=== PATIENT | male | born 1970 | race Caucasian/White ===

== ENCOUNTER → 2017-10-26 | Outpatient (CLI) | payer OTHER ==
[~2017-10-26] MED LIST: CLR10 PO; GABA-113 PO; GARL1200 PO
--- NOTE | 2017-10-26 16:39 | DIAGNOSTIC IMAGING REPORT ---
L ANKLE MIN 3 VIEWS ROUTINE CLINICAL HISTORY: CONTUSION OF ANKLE,SPRAIN OF LIGAMENT OF ANKLE COMPARISON: None. DISCUSSION: Tiny avulsion tip distal fibula of indeterminate age. Margins are partially sclerotic which may indicate an old finding. Small heel spur. Mild ossification Achilles tendon insertion. IMPRESSION: Tiny avulsion tip distal fibula of indeterminate age. Otherwise negative study. The above report was generated using voice recognition software. It may contain grammatical, syntax or spelling errors. Electronically signed by: Gilbert Cervantes M.D. 10/26/2017 4:38 PM Dictated Date/Time: 10/26/2017 4:36 PM
--- NOTE | 2017-10-26 16:39 | DIAGNOSTIC IMAGING REPORT ---
L TIBIA/FIBULA 2 VIEWS ROUTINE HISTORY: 47 years-old Male CONTUSION OF ANKLE,SPRAIN OF LIGAMENT OF ANKLE acute left ankle sprain/contusion COMPARISON: Left ankle radiographs of same day TECHNIQUE: 2 views of the left tibia and fibula FINDINGS: Prominent spurring about the tibial tuberosity. Bone mineralization appears to be within normal limits. The distal portion of the tibia and fibula are not imaged. There is no acute fracture or dislocation identified. Soft tissues are unremarkable without opaque foreign body. IMPRESSION: No acute fracture. The above report was generated using voice recognition software. It may contain grammatical, syntax or spelling errors. Electronically signed by: Dallas Sanchez M.D. 10/26/2017 4:38 PM Dictated Date/Time: 10/26/2017 4:37 PM
== END | disposition home or self-care (01) ==
LOC: C.RAD 16:11
PROVIDERS: ATTEND Family Medicine
DX: S90.00XA Contusion of unspecified ankle, initial encounter (principal); S93.409A Sprain of unspecified ligament of unspecified ankle, initial encounter; X58.XXXA Exposure to other specified factors, initial encounter

== ENCOUNTER 2021-04-10 05:22 | Observation (INO) ==
[2021-04-10 06:42] LABS: Basophils # (auto) 0.03 K/uL (0-0.2); Basophils % (auto) 0.4 %; Eosinophils # (auto) 0.16 K/uL (0-0.5); Eosinophils % (auto) 2.1 %; Hematocrit (blood only) 37.1 % (42-52); Hemoglobin 12.6 g/dL (14.0-18.0); Immature Granulocytes # (auto) 0.01 K/uL (0.00-0.02); Immature Granulocytes % (auto) 0.1 %; Lymphocytes # (auto) 2.07 K/uL (1.2-3.4); Lymphocytes % (auto) 27.8 %; Mean Corpuscular Hemoglobin 31.3 pg (25-34); Mean Corpuscular Volume 92.1 fL (80-100); Mean Platelet Volume 9.4 fL (7.4-10.4); Monocytes # (auto) 0.65 K/uL (0.11-0.59); Monocytes % (auto) 8.7 %; Neutrophils # (auto) 4.53 K/uL (1.4-6.5); Neutrophils % (auto) 60.9 %; Platelet Count 289 K/uL (130-400); RDW Coefficient of Variation 12.4 % (11.5-14.5); RDW Standard Deviation 42.1 fL (36.4-46.3); Red Blood Count 4.03 M/uL (4.7-6.1); White Blood Count 7.45 K/uL (4.8-10.8)
--- NOTE | 2021-04-10 06:43 | Emergency Department Note ---
Impression & Plan Acute GI bleeding, Dog bite of hand, Melanotic stools Admit to the [facility] ED Provider Note NAME: VALERIANO TOURE AGE: 51 SEX: M ARRIVES VIA: Walk-In INFORMANT: Patient and his ED PROVIDER(S): Lydia Paniagua DO CHIEF COMPLAINT: Bloody stools PLAN: Disposition: Admit Condition: Stable MEDICAL DECISION MAKING: This is a 51-year-old male patient who presents to the emergency department with bloody stools. The patient was bitten by his own dog on Wednesday night. Since that time he has been taking ibuprofen, naproxen and Tylenol. Patient awoke tonight with diarrheal bowel movements which became bloody. As for the dog bite to the right hand, the patient has been soaking it in peroxide and watching for signs of infection. Overall there is some mild erythema and edema but it has been improving. His range of motion in the hand has been improving. The dog is up-to-date on its shots. The patient will require prophylaxis with Protonix. Patient will be kept n.p.o. and will be placed on a normal saline drip. [facility] T[facility] Nursing notes reviewed and agree with them. Additional history obtained from the patient's is at the bedside Vital Signs: reviewed and unremarkable Differential diagnosis: Upper GI bleeding, lower GI bleeding, hemorrhoidal bleeding, anemia, infected animal bite ER treatment provided: IV normal saline Diagnostics interpreted by me: ECG: Normal sinus rhythm at a rate of [address] segment elevation or signs of ischemia. There is no ectopy. QTC is 387 ms. Cardiac Monitoring: Normal sinus rhythm at a rate of 67 Laboratory studies: See below HPI: 51/M arrives for evaluation of GI bleeding. The patient has been taking Tylenol, ibuprofen and naproxen for dog bite. Around 1:30 AM, the patient awoke from sleep with sweating. He then had a diarrheal bowel movement around 2 AM and noticed significant amount of dark blood in the toilet. He then had 3 or 4 more bowel movements that were all melanotic. The patient denies ever having GI leading in the past. He was scheduled to have a colonoscopy on April 21. ROS: See above HPI for pertinent positives & negatives. A total of 10 systems reviewed and were otherwise negative. PAST MEDICAL HISTORY:See Below PAST SURGICAL HISTORY:See Below FAMILY HISTORY:See Below SOCIAL HISTORY:Retired from [employer] HOME MEDICATIONS:None ALLERGIES:See list VITALS:See Below PHYSICAL EXAMINATION: HEENT: Head - normocephalic and atraumatic. Pupils are equal, round, and reactive to light. Extraocular eye muscles are intact, and sclera are anicteric. Nose - moist nasal mucosa without discharge. Mouth - moist buccal mucosa. Oropharynx is nonerythematous and there is no tonsillar exudate or edema noted. Neck: Supple; no JVD or cervical lymphadenopathy Heart: Regular rate and rhythm. There is a normal S1 and S2 with no murmurs, clicks, or gallops appreciated. Lungs: Clear to auscultation bilaterally with no wheezes, rales, or rhonchi. Abdomen: Soft, completely nontender, nondistended, with good bowel sounds. There are no palpable pulsatile masses or hepatosplenomegaly. There is no guarding, rigidity, or rebound noted. Extremities: Right hand-there is a puncture wound in the webspace between the thumb and the first finger. There are also puncture wounds noted to the pad of the thumb and at the base of the nail of the thumb. There is significant edema and erythema to the thumb. There is limited range of motion of the thumb secondary to pain. There is some warmth noted to the thumb and the thenar eminence. The skin is somewhat white about the thumb and thenar eminence from where the patient has been soaking his thumb in peroxide. Skin: warm and dry with good turgor and no rashes. ED COURSE: Times/Reassessments: 0550: The patient was evaluated in room C9. A complete history and physical was performed. The patient was typed and screened. Laboratory studies were drawn as above. An order was placed for continuous cardiac monitoring. The patient was in a sinus rhythm at a rate of 67. The patient had a melanotic bowel movement upon arrival into room C9. Upon repeat evaluation of the patient, he was hemodynamically stable. He was having mild crampy abdominal pain. He was kept n.p.o. and placed on a normal saline drip. I reviewed the results of the laboratory studies with the patient and his . I discussed the case with the [facility] hospitalist group. Lydia aPniagua DO Past Med/Surg History Medical History (Updated 04/10/21 @ 22:14 by Lydia Paniagua DO) History of pneumothorax Nephrolithiasis Surgical History (Updated 04/10/21 @ 22:03 by Yassine Mendoza DO) History of chest tube placement History of inguinal herniorrhaphy History of vasectomy Social History Smoking Status: Never smoker Hx Alcohol Use: Yes Alcohol type: beer Hx Substance Use: No Preferred Language: Mozambican Communication Ability: Effective Mixing Supervisor Required: No Beliefs That Will Affect Care: None Current Living Situation: Spouse Feels Safe at Home: Yes Safety Concerns: Feels Safe At This Time Assistive Devices: None Allergies Allergies Allergy/AdvReac Type Severity Reaction Status Date / Time bee venom protein (honey bee) Allergy Severe ANAPHYLAXIS Unverified 04/10/21 07:41 Home Meds Home Medications Medication Instructions Recorded Confirmed No Known Home Medications 04/10/21 04/10/21 Results & Data (ED) Vital Signs Vital Signs - 24 hr 04/10/21 05:27 04/10/21 06:25 04/10/21 07:26 Temperature 36.7 C Temperature Source Temporal Artery Scan Pulse Rate 74 67 Pulse Rate [Left] 63 Pulse Rhythm [Left] Regular Respiratory Rate 20 18 16 Respiratory Effort / Characteristics Non-Labored Respiratory Depth Normal Blood Pressure 111/72 Blood Pressure [Left Arm] 125/67 Blood Pressure Mean 85 Blood Pressure Mean [Left Arm] 86 Blood Pressure Position [Left Arm] Sitting Pulse Oximetry 99 98 97 Oxygen Delivery Method Room Air Room Air Room Air Sepsis Recent Fever Within 48 Hours No Sepsis New/Unexplained Change in Mental Status N/A Sepsis Action Taken by Nursing No Action Required Laboratory Data Result diagrams: 04/10/21 06:28 04/10/21 06:28 Lab Results 04/10/21 04/10/21 04/10/21 Range/Units 06:28 06:28 06:28 WBC 7.45 (4.8-10.8) K/uL RBC 4.03 L (4.7-6.1) M/uL Hgb 12.6 L (14.0-18.0) g/dL Hct 37.1 L (42-52) % MCV 92.1 (80-100) fL MCH 31.3 (25-34) pg MCHC 34.0 (32-36) g/dL RDW Std Deviation 42.1 (36.4-46.3) fL RDW Coeff of Darlene 12.4 (11.5-14.5) % Plt Count 289 (130-400) K/uL MPV 9.4 (7.4-10.4) fL Immature Gran % (Auto) 0.1 % Neut % (Auto) 60.9 % Lymph % (Auto) 27.8 % Newton % (Auto) 8.7 % Eos % (Auto) 2.1 % Baso % (Auto) 0.4 % Neut # (Auto) 4.53 (1.4-6.5) K/uL Lymph # (Auto) 2.07 (1.2-3.4) K/uL Newton # (Auto) 0.65 H (0.11-0.59) K/uL Eos # (Auto) 0.16 (0-0.5) K/uL Baso # (Auto) 0.03 (0-0.2) K/uL Immature Gran # (Auto) 0.01 (0.00-0.02) K/uL PT 9.6 (9.0-12.0) Seconds INR 0.9 (0.9-1.1) APTT 24.5 (21.0-31.0) Seconds PTT Ratio 0.9 Sodium 138 (136-145) mmol/L Potassium 4.7 (3.5-5.1) mmol/L Chloride 110 H (98-107) mmol/L Carbon Dioxide 26 (21-32) mmol/L Anion Gap 2.0 L (3-11) BUN 35 H (7-18) mg/dl Creatinine 1.05 (0.6-1.4) mg/dl Est Cr Clr Drug Dosing 88.1 ml/min Est GFR ( Amer) 93.5 ml/min Est GFR (Non-Af Amer) 80.7 ml/min BUN/Creatinine Ratio 32.9 H (10-20) Glucose 104 H (70-99) mg/dl Calcium 8.5 (8.5-10.1) mg/dl Total Bilirubin 0.5 (0.2-1) mg/dl AST 14 L (15-37) U/L ALT 24 (12-78) U/L Alkaline Phosphatase 42 L (45-117) U/L Total Protein 6.6 (6.4-8.2) gm/dl Albumin 3.3 L (3.4-5.0) gm/dl Globulin 3.3 (2.5-4.0) gm/dl Albumin/Globulin Ratio 1.0 (0.9-2) Blood Type Antibody Screen 04/10/21 Range/Units 06:38 WBC (4.8-10.8) K/uL RBC (4.7-6.1) M/uL Hgb (14.0-18.0) g/dL Hct (42-52) % MCV (80-100) fL MCH (25-34) pg MCHC (32-36) g/dL RDW Std Deviation (36.4-46.3) fL RDW Coeff of Darlene (11.5-14.5) % Plt Count (130-400) K/uL MPV (7.4-10.4) fL Immature Gran % (Auto) % Neut % (Auto) % Lymph % (Auto) % Newton % (Auto) % Eos % (Auto) % Baso % (Auto) % Neut # (Auto) (1.4-6.5) K/uL Lymph # (Auto) (1.2-3.4) K/uL Newton # (Auto) (0.11-0.59) K/uL Eos # (Auto) (0-0.5) K/uL Baso # (Auto) (0-0.2) K/uL Immature Gran # (Auto) (0.00-0.02) K/uL PT (9.0-12.0) Seconds INR (0.9-1.1) APTT (21.0-31.0) Seconds PTT Ratio Sodium (136-145) mmol/L Potassium (3.5-5.1) mmol/L Chloride (98-107) mmol/L Carbon Dioxide (21-32) mmol/L Anion Gap (3-11) BUN (7-18) mg/dl Creatinine (0.6-1.4) mg/dl Est Cr Clr Drug Dosing ml/min Est GFR ( Amer) ml/min Est GFR (Non-Af Amer) ml/min BUN/Creatinine Ratio (10-20) Glucose (70-99) mg/dl Calcium (8.5-10.1) mg/dl Total Bilirubin (0.2-1) mg/dl AST (15-37) U/L ALT (12-78) U/L Alkaline Phosphatase (45-117) U/L Total Protein (6.4-8.2) gm/dl Albumin (3.4-5.0) gm/dl Globulin (2.5-4.0) gm/dl Albumin/Globulin Ratio (0.9-2) Blood Type O Positive Antibody Screen NEGATIVE Administered Medications Acetaminophen (Acetaminophen 325 Mg Tab) 650 mg PO Q4H PRN PRN Reason: Pain or Fever Stop: 05/10/21 10:39 Last Admin: 04/10/21 15:54 Dose: 650 mg Documented by: [id number] Sodium Chloride (Nss 1000ml) 1,000 mls @ 80 mls/hr IV .[id number] BOB Stop: 05/10/21 10:39 Last Admin: 04/10/21 11:44 Dose: Not Given Documented by: [id number] Pantoprazole Sodium 40 mg/ (Syringe) 10 mls @ 5 mls/min IV BID BOB Stop: 05/10/21 10:39 Last Admin: 04/10/21 20:56 Dose: 5 mls/min Documented by: [id number] Admin: 04/10/21 11:45 Dose: 5 mls/min Documented by: [id number] Ampicillin Sodium/Sulbactam Sodium 3,000 mg/ Sodium Chloride 108 mls @ 200 mls/hr IV Q6H BOB; Protocol Stop: 04/17/21 10:59 Last Infusion: 04/10/21 18:53 Dose: 0 mls/hr Documented by: [id number] Admin: 04/10/21 18:14 Dose: 200 mls/hr Documented by: [id number] Infusion: 04/10/21 12:42 Dose: 0 mls/hr Documented by: [id number] Admin: 04/10/21 11:45 Dose: 200 mls/hr Documented by: [id number] Discontinued Medications Sodium Chloride (Nss) 500 mls @ 125 mls/hr IV .Q4H BOB Stop: 05/10/21 07:29 Last Infusion: 04/10/21 12:44 Dose: 0 mls/hr Documented by: [id number] Admin: 04/10/21 10:08 Dose: 125 mls/hr Documented by: [id number] Lidocaine HCl (Lidocaine 2% 2 Ml Vial/Amp(20mg/Ml)) Confirm Administered Dose 2 ml INFIL .[employer] ONE Stop: 04/10/21 14:08 Last Admin: 04/10/21 15:45 Dose: Not Given Documented by: [id number] Polyethylene Glycol (Polyethylene (Miralax) 17 Gm Pack) 238 gm PO TODAY@1500,2000 BOB Stop: 04/10/21 20:01 Last Admin: 04/10/21 19:50 Dose: 238 gm Documented by: [id number] Admin: 04/10/21 18:15 Dose: 238 gm Documented by: [id number] Propofol (Propofol Iv Emulsion 10 Mg/Ml 20 Ml Vial) Confirm Administered Dose 200 mg IV .[employer] ONE Stop: 04/10/21 14:08 Last Admin: 04/10/21 15:45 Dose: Not Given Documented by: [id number] Discharge Plan Visit Data Chief Complaint: Rectal Bleed Stated Complaint: BLOOD IN STOOL ED Provider: Lydia Paniagua Discharge Problem: Acute GI bleeding, Dog bite of hand, Melanotic stools Patient Disposition: Admitted As Inpatient Discharge Instructions Interventions: ED Discharge Assessment Last Done: 04/10/21 10:08 Discharge Problem: Dog bite of hand Qualifiers: Encounter type: initial encounter Laterality: right Qualified Code(s): S61.451A - Open bite of right hand, initial encounter
[2021-04-10 07:03] LABS: Albumin Level 3.3 gm/dl (3.4-5.0); BUN Creatinine Ratio 32.9 (10-20); Calcium 8.5 mg/dl (8.5-10.1); Creatinine Clr Calc Pharmacy 88.1 ml/min; Est GFR (African American) 93.5 ml/min; Est GFR (Non-African American) 80.7 ml/min; Potassium 4.7 mmol/L (3.5-5.1)
[2021-04-10 07:04] LABS: Bilirubin,Total 0.5 mg/dl (0.2-1); Globulin 3.3 gm/dl (2.5-4.0); Total Protein 6.6 gm/dl (6.4-8.2)
[2021-04-10 07:17] LABS: INR 0.9 (0.9-1.1); Partial Thromboplastin Ratio 0.9; Partial Thromboplastin Time 24.5 Seconds (21.0-31.0); Prothrombin Time 9.6 Seconds (9.0-12.0)
[2021-04-10] MEDS ORDERED: SODIUM CHLORIDE 0.9% 500 ML IV SCH (07:30)
--- NOTE | 2021-04-10 10:06 | History & Physical Report ---
Date of Service April 10, 2021 Assessment & Plan (1) GI bleed: Plan: melanotic stools since 1am this morning, initially was diarrhea, then 4 dark, black stools taking Naproxen and ibuprofen NPO, Protonix 40mg IV BID consult [facility] GI for scope this afternoon if possible vitals stable (2) Dog bite of hand: Plan: some redness and swelling of right thumb, thenar eminence will place on Unasyn bite occurred 2 days ago, no fever/chills he is up to date on tetanus shot History of Present Illness Chief Complaint: I had very dark stools Primary Care Provider: China Banda MD 51 yo male with no significant medical history presents with development of dark, melanotic stools in the past 10 hours. Never had this before, started around 1am, woke up with diaphoresis, had diarrhea about 4 times then had several very dark, black looking stools. No bright red blood. He had some nausea but no vomiting. Some vague upper abdominal discomfort. He came to the ED for evaluation, two more dark melanotic stools in the ED. He says that 3 days ago his dog bit his right hand. Bit down on thumb and thenar eminence. Has had a lot of pain and swelling. Has been taking Naproxen BID and Tylenol but also ibuprofen 400mg several times a day. Discussed that this is too much NSAID use, could be cause of gastric ulcer. No heavy alcohol use. He was scheduled to have colonoscopy with Dr Dailey next week. Will consult Dr. Dailey. Allergies Allergy/AdvReac Type Severity Reaction Status Date / Time bee venom protein (honey bee) Allergy Severe ANAPHYLAXIS Unverified 04/10/21 07:41 Home Medications Medication Instructions Recorded Confirmed Type No Known Home Medications 04/10/21 04/10/21 History Past Med/Surg History Medical History (Updated 04/10/21 @ 22:03 by Yassine Mendoza DO) History of pneumothorax Nephrolithiasis Surgical History (Updated 04/10/21 @ 22:03 by Yassine Mendoza DO) History of chest tube placement History of inguinal herniorrhaphy History of vasectomy Social History Smoking Status: Never smoker Hx Alcohol Use: Yes Alcohol type: beer Hx Substance Use: No Preferred Language: Palestinian Communication Ability: Effective Counter Pocket Trimmer Required: No Beliefs That Will Affect Care: None Current Living Situation: Spouse Feels Safe at Home: Yes Safety Concerns: Feels Safe At This Time Assistive Devices: None Review of Systems Review of Systems: All systems reviewed & are unremarkable except as noted in Subjective Constitutional: no fever, no chills, no sweats, no fatigue and no weakness Respiratory: no cough and no dyspnea Cardiovascular: no chest pain and no edema Gastrointestinal: + abdominal pain, + early satiety, + nausea, + diarrhea/loose stools and + melena; no vomiting, no coffee ground emesis, no c onstipation and no blood in stools Genitourinary: no dysuria Physical Exam Physical Exam: General: well developed, well nourished, no acute distress, comfortable Neck: supple, trachea midline, normal thyroid Lungs: clear to auscultation bilaterally, normal respiratory effort, no access ory muscle use, no distress Heart: regular S1 and S2, no murmur, peripheral pulses normal, capillary refill normal, no edema Abdomen: soft, NT, ND, + BS, no hepatomegaly, normal to percussion Extremities: normal in appearance, no cyanosis, no petechiae, strength is 5/5 bilaterally Neuro: awake, cooperative, moves all extremities, no focal motor deficits, CN II-XII intact, sensation in extremities intact, normal speech Skin: warm, dry, no rash, normal turgor Psych: Awake, alert oriented x 3, euthymic affect Results & Data Results & Data ([facility]) Vital Signs (Past 12 Hours) Vital Signs Temp Pulse Pulse Resp BP BP Pulse Ox 04/10/21 08:59 68 16 110/79 96 04/10/21 07:26 63 16 125/67 97 04/10/21 06:25 67 18 98 04/10/21 05:27 36.7 C 74 20 111/72 99 Laboratory Results Laboratory Results - last 24 hr 04/10/21 04/10/21 04/10/21 06:28 06:28 06:28 WBC 7.45 RBC 4.03 L Hgb 12.6 L Hct 37.1 L MCV 92.1 MCH 31.3 MCHC 34.0 RDW Std Deviation 42.1 RDW Coeff of Darlene 12.4 Plt Count 289 MPV 9.4 Immature Gran % (Auto) 0.1 Neut % (Auto) 60.9 Lymph % (Auto) 27.8 [place] % (Auto) 8.7 Eos % (Auto) 2.1 Baso % (Auto) 0.4 Neut # (Auto) 4.53 Lymph # (Auto) 2.07 [place] # (Auto) 0.65 H Eos # (Auto) 0.16 Baso # (Auto) 0.03 Immature Gran # (Auto) 0.01 PT 9.6 INR 0.9 APTT 24.5 PTT Ratio 0.9 Sodium 138 Potassium 4.7 Chloride 110 H Carbon Dioxide 26 Anion Gap 2.0 L BUN 35 H Creatinine 1.05 Est Cr Clr Drug Dosing 88.1 Est GFR ( Amer) 93.5 Est GFR (Non-Af Amer) 80.7 BUN/Creatinine Ratio 32.9 H Glucose 104 H Calcium 8.5 Total Bilirubin 0.5 AST 14 L ALT 24 Alkaline Phosphatase 42 L Total Protein 6.6 Albumin 3.3 L Globulin 3.3 Albumin/Globulin Ratio 1.0 Stool H. pylori Ag COVID-19 Eval Order SARS-CoV-2 (PCR) Blood Type Antibody Screen 04/10/21 04/10/21 04/10/21 06:38 07:35 07:35 WBC RBC Hgb Hct MCV MCH MCHC RDW Std Deviation RDW Coeff of Darlene Plt Count MPV Immature Gran % (Auto) Neut % (Auto) Lymph % (Auto) [place] % (Auto) Eos % (Auto) Baso % (Auto) Neut # (Auto) Lymph # (Auto) [place] # (Auto) Eos # (Auto) Baso # (Auto) Immature Gran # (Auto) PT INR APTT PTT Ratio Sodium Potassium Chloride Carbon Dioxide Anion Gap BUN Creatinine Est Cr Clr Drug Dosing Est GFR ( Amer) Est GFR (Non-Af Amer) BUN/Creatinine Ratio Glucose Calcium Total Bilirubin AST ALT Alkaline Phosphatase Total Protein Albumin Globulin Albumin/Globulin Ratio Stool H. pylori Ag COVID-19 Eval Order Covid19 at [facility] SARS-CoV-2 (PCR) NEGATIVE Blood Type O Positive Antibody Screen NEGATIVE 04/10/21 17:40 WBC RBC Hgb Hct MCV MCH MCHC RDW Std Deviation RDW Coeff of Darlene Plt Count MPV Immature Gran % (Auto) Neut % (Auto) Lymph % (Auto) [place] % (Auto) Eos % (Auto) Baso % (Auto) Neut # (Auto) Lymph # (Auto) [place] # (Auto) Eos # (Auto) Baso # (Auto) Immature Gran # (Auto) PT INR APTT PTT Ratio Sodium Potassium Chloride Carbon Dioxide Anion Gap BUN Creatinine Est Cr Clr Drug Dosing Est GFR ( Amer) Est GFR (Non-Af Amer) BUN/Creatinine Ratio Glucose Calcium Total Bilirubin AST ALT Alkaline Phosphatase Total Protein Albumin Globulin Albumin/Globulin Ratio Stool H. pylori Ag Pending COVID-19 Eval Order SARS-CoV-2 (PCR) Blood Type Antibody Screen Medications Administered Current Inpatient Medications Acetaminophen (Acetaminophen 325 Mg Tab) 650 mg PO Q4H PRN PRN Reason: Pain or Fever Stop: 05/10/21 10:39 Last Admin: 04/10/21 15:54 Dose: 650 mg Documented by: Sodium Chloride (Nss 1000ml) 1,000 mls @ 80 mls/hr IV .[id number] BOB Stop: 05/10/21 10:39 Last Admin: 04/10/21 11:44 Dose: Not Given Documented by: Pantoprazole Sodium 40 mg/ (Syringe) 10 mls @ 5 mls/min IV BID BOB Stop: 05/10/21 10:39 Last Admin: 04/10/21 20:56 Dose: 5 mls/min Documented by: Ampicillin Sodium/Sulbactam Sodium 3,000 mg/ Sodium Chloride 108 mls @ 200 mls/hr IV Q6H [facility]; Protocol Stop: 04/17/21 10:59 Last Infusion: 04/10/21 18:53 Dose: Infused Documented by: Ondansetron HCl (Ondansetron Inj 2 Mg/Ml 2 Ml Vial) 4 mg IV Q6H PRN PRN Reason: Nausea Stop: 05/10/21 10:39 Code Status & VTE Plan VTE Prophylaxis Plan VTE Prophylaxis will be ordered: Yes PG Care Time/CCT Total # of Minutes Spent Total Time Spent with Patient: Total time spent is greater than 50% in coordination of care (as documented) at patient's floor/unit and/or counseling patient: Coding Level of Care Code INT OBSERVATION CARE 70M LVL 3 Diagnoses GI bleed K92.2 Dog bite of hand S61.459A; W54.0XXA
[2021-04-10] MEDS ORDERED: ONDANSETRON INJ 2 MG/ML 2 ML VIAL IV PRN (10:40)
[2021-04-10] MEDS: SODIUM CHLORIDE 0.9% 1000ML 1,000 ML IV SCH ×2 (11:44→23:31)
[2021-04-10] MEDS: PANTOprazole 40 MG in SYRINGE 0 ML IV SCH ×2 (11:45→20:56)
[2021-04-10] MEDS: AMPICILLIN/SULBACTAM SOD 3,000 MG in 0.9 % SODIUM CHLORIDE 100 ML IV SCH ×3 (11:45→23:31)
--- NOTE | 2021-04-10 13:53 | Anesthesiology Consultation ---
Date of Service April 10, 2021 Assessment & Plan (1) Encounter for pre-operative examination: Chart Review Chart Review: Acceptable Risk for Surgery and Patient NOT seen in Pre Admission Testing Consults Requested none History Surgery Operation Date: 04/10/21 16:45 Proposed Procedures p Esophagogastroduodenoscopy Dr Dailey - Armond Dailey Height/Weight Height: 5 ft 9 in Weight: 85.4 kg Allergies Allergy/AdvReac Type Severity Reaction Status Date / Time bee venom protein (honey bee) Allergy Severe ANAPHYLAXIS Unverified 04/10/21 07:41 Medications Home Medications Medication Instructions Recorded Confirmed Last Taken No Known Home Medications 04/10/21 04/10/21 Unknown Active Medications Generic Name Dose Route Start Last Admin Trade Name Freq PRN Reason Stop Dose Admin Sodium Chloride 1,000 mls @ 80 mls/hr 04/10/21 10:40 04/10/21 11:44 Nss 1000ml IV 05/10/21 10:39 Not Given .[id number] BOB Pantoprazole Sodium 40 mg/ 10 mls @ 5 mls/min 04/10/21 10:40 04/10/21 11:45 Syringe IV 05/10/21 10:39 5 mls/min BID BOB Administration Ampicillin Sodium/Sulbactam 108 mls @ 200 mls/hr 04/10/21 11:00 04/10/21 12:42 Sodium 3,000 mg/ Sodium IV 04/17/21 10:59 Infused Chloride Q6H BOB Infusion Protocol Social History Smoking Status: Never smoker Hx Alcohol Use: Yes Alcohol type: beer alcohol intake frequency: other Alcohol Intake Frequency Comment: case of beer over 2-3 months Hx Substance Use: No Physical Exam Vital Signs Last Vital Signs Temp 98.1 F 04/10/21 05:27 Pulse 68 04/10/21 08:59 Resp 16 04/10/21 08:59 BP 110/79 04/10/21 08:59 Pulse Ox 96 04/10/21 08:59 Testing Laboratory Results 04/10/21 06:28 04/10/21 06:28 PT 9.6 Seconds (9.0-12.0) 04/10/21 06:28 INR 0.9 (0.9-1.1) 04/10/21 06:28 APTT 24.5 Seconds (21.0-31.0) 04/10/21 06:28 Blood Type O Positive 04/10/21 06:38 Antibody Screen NEGATIVE 04/10/21 06:38
--- NOTE | 2021-04-10 14:01 | Gastrointestinal Consultation ---
Date of Consultation April 10, 2021 Assessment & Plan (1) GI bleed: Black stool in setting of NSAIDs suggestive of UGI bleeding. Will do EGD today with therapeutic intent. Procedure and risks explained to patient which include but not limited to medication reaction, bleeding, perforation, aspiration, and missed lesions. 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 Some epi pain started this am 0900 severe at times but comes in waves currently ok. He had diarrhea at 0200 and stool perhaps dark but did not really look at it. But at 0400 saw black stool. Several bms at home and since admit this am. Some red component around edges but stool almost all black. Hgb 12.6 L on admit with no old lab to compare. Reviewed EGD from 12/2019 for GERD and globus which showed small HH, mild ring dilated with 57 F dilator, and possible eosinophilic esophagitis mid esophagus but path negative for eosinophilic esophagitis and duodneal stenosis. No previous colonoscopoy although he is set up for outpt colo 04/21/21 at our endoscopy center. PMH hx of back pain chronic meds none FHX non contributory. Allergies Allergy/AdvReac Type Severity Reaction Status Date / Time bee venom protein (honey bee) Allergy Severe ANAPHYLAXIS Unverified 04/10/21 07:41 Home Medications Medication Instructions Recorded Confirmed Type No Known Home Medications 04/10/21 04/10/21 History Patient History Social History Smoking Status: Never smoker Hx Alcohol Use: Yes Alcohol type: beer Hx Substance Use: No Preferred Language: Bahraini Communication Ability: Effective Control Clerk Food And Beverage Required: No Beliefs That Will Affect Care: None Current Living Situation: Spouse Feels Safe at Home: Yes Safety Concerns: Feels Safe At This Time Assistive Devices: None Review of Systems Review of Systems: All systems reviewed & are unremarkable except as noted in HPI & below Physical Exam Constitutional: WD/WN, vitals as above ENMT: Ears: no external ear abnormality Nose: no external nose abnormality Neck: normal visual inspection and trachea midline Respiratory: normal respiratory effort, lungs clear to auscultation Cardiovascular: RRR, no murmur, no edema Gastrointestinal (Abdomen): normal bowel sounds, soft, nontender, no h epatosplenomegaly Neurologic: PERRL, EOMI, accommodation nl, no face palsy, no dysarthria Psychiatric: A+Ox3, euthymic affect Results & Data ([facility]) Vital Signs (Past 12 Hours) Vital Signs Temp Pulse Pulse Resp BP BP Pulse Ox 04/10/21 08:59 68 16 110/79 96 04/10/21 07:26 63 16 125/67 97 04/10/21 06:25 67 18 98 04/10/21 05:27 36.7 C 74 20 111/72 99
[2021-04-10] MEDS ORDERED: PROPOFOL IV EMULSION 10 MG/ML 20 ML VIAL IV ONE (14:07)
[2021-04-10] MEDS ORDERED: LIDOCAINE 2% 2 ML VIAL/AMP(20MG/ML) INFIL ONE (14:07)
--- NOTE | 2021-04-10 14:58 | Post Operative Brief Note ---
Immediate Post Op Note v1 Date of Surgery April 10, 2021 Pre & Post Diagnosis Operation Date: 04/10/21 16:45 Pre-Op Diagnosis: GI BLEED I identified the patient and participated in the time-out.: Yes Procedure Operation Date: 04/10/21 16:45 <No data on this case meets the specified criteria> Surgeon Armond Dailey Car Lubricator see formal report Estimated Blood Loss 0 Findings Consistent with Post-Op Diagnosis erosive esophagitis, erosive gastritis, erosive duodenitis, duodenal stricture, schatzkis ring, hiatal hernia. No lesions to explain acute GI bleeding. Recommend colonoscopy tomorrow.
--- NOTE | 2021-04-10 15:13 | GI REPORT ---
Patient Name: Al Kim Procedure Date: 04/10/2021 2:22 PM Date of : 1970 Admit Type: Inpatient Age: 51 Gender: Male Attending MD: Armond Dailey MD Procedure: Upper GI endoscopy Providers: Armond Dailey MD Referring MD: Yassine Mendoza Indications: Acute post hemorrhagic anemia, Melena Medicines: Monitored Anesthesia Care Complications: No immediate complications. Estimated blood loss: Minimal. Estimated Blood Loss: Estimated blood loss was minimal. Procedure: Pre-Anesthesia Assessment: - The risks and benefits of the procedure and the sedation options and risks were discussed with the patient. All questions were answered and informed consent was obtained. After obtaining informed consent, the endoscope was passed under direct vision. Throughout the procedure, the patient's blood pressure, pulse, and oxygen saturations were monitored continuously. The Endoscope was introduced through the mouth, and advanced to the second part of duodenum. The upper GI endoscopy was accomplished without difficulty. The patient tolerated the procedure well. Procedure and risks explained to patient which include but not limited to medication reaction, bleeding, perforation, aspiration , and missed lesions. Judicious gas insufflation was used and gas removal done on the way out. The lumen was always visualized when advancing the scope. Prep was good. Washes and suctioning used as needed to get good visualization of the mucosa. Retroflexion to look at the fundus and cardia of the stomach and GE junction was done. Findings: Esophagogastric landmarks were identified: the gastroesophageal junction was found at 35 cm from the incisors. A 3 cm hiatal hernia was present. LA Grade A (one or more mucosal breaks less than 5 mm, not extending between tops of 2 mucosal folds) esophagitis was found at the gastroesophageal junction. A moderate Schatzki ring was found at the gastroesophageal junction. Multiple dispersed small erosions were found in the gastric fundus, in the gastric body and in the gastric antrum. Only one very small one in the body had slight self limited oozing of blood. No other had bleeding nor stigmata of recent bleeding. Multiple diffuse erosions up to 5 mm in size without bleeding were found in the first portion of the duodenum and in the second portion of the duodenum. Rutledge appering stenosis noted at junction of bulb and 2nd duodenum requring switch to ultrathin pediatric scope to traverse area The exam was otherwise without abnormality. Impression: - Esophagogastric landmarks identified. - 3 cm hiatal hernia. - LA Grade A erosive esophagitis. - Moderate Schatzki ring. - Multiple dispersed small erosions were found in the gastric fundus, in the gastric body and in the gastric antrum. Only one very small one in the body had slight self limited oozing of blood. No other had bleeding nor stigmata of recent bleeding. - Duodenal erosions without bleeding. 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 - No specimens collected. Recommendation: - [facility]. - No large lesion with active bleed or stigmata noted to explain the amount of bleeding clinically. Check stool for H.pylori Ag but NSAIDS could explain Will set up for colonoscopy tomorrow to look for bleeding distal to extent of scope. Armond Dailey M.D. Armond Dailey MD 04/10/2021 3:12:59 PM This report has been signed electronically. Note Initiated On: 04/10/2021 2:22 PM Number of Addenda: 0 I attest to the content of the Intraoperative Record and orders documented therein, exceptions below {[id number]}
--- NOTE | 2021-04-10 15:49 | Anesthesiology Progress Note ---
Date of Service April 10, 2021 Anesthesia Post Procedure Vital Signs Vital Signs: Temp Pulse Pulse Resp BP BP Pulse Ox 04/10/21 15:25 63 14 100/73 100 04/10/21 15:10 73 15 104/64 100 04/10/21 14:55 86 16 118/77 98 04/10/21 14:19 97.9 F 65 18 133/78 98 04/10/21 08:59 68 16 110/79 96 04/10/21 07:26 63 16 125/67 97 04/10/21 06:25 67 18 98 04/10/21 05:27 98.1 F 74 20 111/72 99 Pain Intensity Bilateral Lower Abdomen: Pain Intensity: 4 Transfer of Care Handoff Completed per policy Notes Mental Status: alert / awake / arousable and participated in evaluation Patient Amnestic to Procedure: Yes Nausea / Vomiting: adequately controlled Pain: adequately controlled Airway Patency, RR, SpO2: stable & adequate BP & HR: stable & adequate Hydration State: stable & adequate Anesthetic Complications: no major complications apparent and Pt Satisfied with anesthetic care
[2021-04-10] MEDS: ACETAMINOPHEN 325 MG TAB PO PRN (15:54)
--- NOTE | 2021-04-10 17:01 | Electrocardiogram Report ---
Test Reason : Blood Pressure : / mmHG Vent. Rate : 062 BPM Atrial Rate : 062 BPM P-R Int : 136 ms QRS Dur : 076 ms QT Int : 382 ms P-R-T Axes : 029 029 032 degrees QTc Int : 387 ms Normal sinus rhythm Normal ECG No previous ECGs available Confirmed by James Larios ([id number]) on 04/10/2021 5:01:19 PM Referred By: Confirmed By:James Larios
[2021-04-10] MEDS: POLYETHYLENE (MIRALAX) 17 GM PACK PO SCH ×2 (18:15→19:50)
[2021-04-11] MEDS: AMPICILLIN/SULBACTAM SOD 3,000 MG in 0.9 % SODIUM CHLORIDE 100 ML IV SCH ×2 (05:45→11:18)
[2021-04-11] MEDS: PANTOprazole 40 MG in SYRINGE 0 ML IV SCH (08:17)
--- NOTE | 2021-04-11 08:35 | Gastroenterology Progress Note ---
Date of Service April 11, 2021 Assessment & Plan (1) Acute GI bleeding: Plan: Acute GI bleeding - EGD performed yesterday did not demonstrate cause consistent with amount of bleeding patient experienced. Plan for today is colonoscopy. Patient tolerated prep well. Procedure and risks explained to patient which include but not limited to medication reaction, bleeding, perforation, aspiration, and missed lesions. Verbalizes understanding and is agreeable to proceed. Remain NPO. Stool for h.pylori is pending. Transfuse prn. Please refer to supervising physician addendum for further recommendations. Admission and Anticipated Discharge Date Admission Date: April 10, 2021 Supervising Physician Co-Signing Physician Notes I have seen and examined the patient. I agree with note above by MARINE Amos except as noted below. HPI Pt s/p bowel prep for colonoscopy. No further bleeding. No abd pain PE Abdomen pos bs, soft, no guarding nor rebound A/P GI bleeding--- colonoscopy today. Procedure and risks explained to patient which include but not limited to medication reaction, bleeding, perforation, aspiration, and missed lesions. Subjective Patient is awake, alert, and oriented lying in position of comfort on the bed. Denies abdominal pain, nausea, or vomiting. States he feels hungry. Reports that bloody stools began yesterday around 2 am. Diarrhea and dark red blood that made the sides of the toilet look like "they were stained with iodine when I flushed". No fever or chills. Denies melena. Tolerated colonoscopy prep well. Reports clear with some green mucus this morning with bowel movement. He reports dog bite and use of ibuprofen, aleve, and tylenol for several days due to pain. Denies any chest pain, shortness of breath, or lightheadedness. He is a lifetime nonsmoker. Reports he drinks about 3 beers per week. Denies drug use including marijuana. He is with no children. [employer]ired [employer] and worked in [employer]. Review of Systems Review of Systems: All systems reviewed & are unremarkable except as noted in Subjective Physical Exam Gastrointestinal (Abdomen): normal bowel sounds, soft, nontender, no hepatosplenomegaly Results & Data ([facility]) Vital Signs (Past 12 Hours) Vital Signs Temp Pulse Pulse Resp BP Pulse Ox 04/11/21 07:40 61 04/11/21 04:58 36.7 C 66 15 105/58 L 100 04/10/21 23:20 36.5 C 68 18 114/78 99 04/10/21 22:18 59 L Laboratory Results Laboratory Results - last 24 hr 04/10/21 04/10/21 04/10/21 06:38 07:35 17:40 Stool H. pylori Ag Pending SARS-CoV-2 (PCR) NEGATIVE Blood Type O Positive Antibody Screen NEGATIVE Diagnostic Findings 04/10/2021: EGD performed by Dr. Dailey demonstrated - Esophagogastric landmarks identified. - 3 cm hiatal hernia. - LA Grade A erosive esophagitis. - Moderate Schatzki ring. - Multiple dispersed small erosions were found in the gastric fundus, in the gastric body and in the gastric antrum. Only one very small one in the body had slight self limited oozing of blood. No other had bleeding nor stigmata of r ecent bleeding. - Duodenal erosions without bleeding. 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 - No specimens collected.
[2021-04-11 08:40] LABS: Basophils # (auto) 0.02 K/uL (0-0.2); Basophils % (auto) 0.4 %; Eosinophils # (auto) 0.16 K/uL (0-0.5); Hematocrit (blood only) 33.5 % (42-52); Hemoglobin 11.1 g/dL (14.0-18.0); Immature Granulocytes # (auto) 0.01 K/uL (0.00-0.02); Immature Granulocytes % (auto) 0.2 %; Lymphocytes # (auto) 1.83 K/uL (1.2-3.4); Lymphocytes % (auto) 34.3 %; Mean Corpuscular Hemoglobin 30.5 pg (25-34); Mean Corpuscular Hgb Conc 33.1 g/dL (32-36); Mean Platelet Volume 9.3 fL (7.4-10.4); Monocytes % (auto) 7.5 %; Neutrophils # (auto) 2.92 K/uL (1.4-6.5); Neutrophils % (auto) 54.6 %; Platelet Count 258 K/uL (130-400); RDW Coefficient of Variation 12.3 % (11.5-14.5); RDW Standard Deviation 41.8 fL (36.4-46.3); Red Blood Count 3.64 M/uL (4.7-6.1); White Blood Count 5.34 K/uL (4.8-10.8)
[2021-04-11 09:32] LABS: Albumin Level 2.9 gm/dl (3.4-5.0); BUN Creatinine Ratio 14.2 (10-20); Bilirubin,Total 0.6 mg/dl (0.2-1); Calcium 8.8 mg/dl (8.5-10.1); Creatinine Clr Calc Pharmacy 94.9 ml/min; Est GFR (African American) 112.6 ml/min; Est GFR (Non-African American) 97.2 ml/min; Potassium 4.3 mmol/L (3.5-5.1); Total Protein 5.9 gm/dl (6.4-8.2)
[2021-04-11] MEDS: ACETAMINOPHEN 325 MG TAB PO PRN (09:42)
[2021-04-11] MEDS: SODIUM CHLORIDE 0.9% 1000ML 1,000 ML IV SCH (10:12)
--- NOTE | 2021-04-11 12:03 | Anesthesiology Consultation ---
Date of Service April 11, 2021 Assessment & Plan (1) Encounter for pre-operative examination: Chart Review Chart Review: Acceptable Risk for Surgery and Patient NOT seen in Pre Admission Testing Consults Requested none History Surgery Operation Date: 04/10/21 16:45 Proposed Procedures p Esophagogastroduodenoscopy Dr Ashlie Dailey Operation Date: 04/11/21 17:15 Proposed Procedures p Colonoscopy Dr Ashlie Dailey Height/Weight Height: 5 ft 9 in Weight: 84.822 kg Allergies Allergy/AdvReac Type Severity Reaction Status Date / Time bee venom protein (honey bee) Allergy Severe ANAPHYLAXIS Unverified 04/10/21 07:41 Medications Home Medications Medication Instructions Recorded Confirmed Last Taken No Known Home Medications 04/10/21 04/10/21 Unknown Active Medications Generic Name Dose Route Start Last Admin Trade Name Freq PRN Reason Stop Dose Admin Acetaminophen 650 mg 04/10/21 10:40 04/11/21 09:42 Acetaminophen 325 Mg Tab PO 05/10/21 10:39 650 mg Q4H PRN Administration Pain or Fever Sodium Chloride 1,000 mls @ 80 mls/hr 04/10/21 10:40 04/11/21 10:12 Nss 1000ml IV 05/10/21 10:39 80 mls/hr .[id number] BOB Administration Pantoprazole Sodium 40 mg/ 10 mls @ 5 mls/min 04/10/21 10:40 04/11/21 08:17 Syringe IV 05/10/21 10:39 5 mls/min BID BOB Administration Ampicillin Sodium/Sulbactam 108 mls @ 200 mls/hr 04/10/21 11:00 04/11/21 11:53 Sodium 3,000 mg/ Sodium IV 04/17/21 10:59 Infused Chloride Q6H BOB Infusion Protocol NPO Date Last Intake of Fluids: 04/10/21 Time Last Intake of Fluids: 04:00 Date Last Intake of Solids: 04/09/21 Time Last Intake of Solids: 18:00 Past Medical History Medical History Anemia History of pneumothorax Nephrolithiasis Past Surgical History Surgical History History of chest tube placement History of inguinal herniorrhaphy History of vasectomy Social History Smoking Status: Never smoker Hx Alcohol Use: Yes Alcohol type: beer alcohol intake frequency: other Alcohol Intake Frequency Comment: case of beer over 2-3 months Hx Substance Use: No Physical Exam Vital Signs Last Vital Signs Temp 36.7 C 04/11/21 11:49 Pulse 67 04/11/21 11:49 Resp 18 04/11/21 11:49 BP 115/72 04/11/21 11:49 Pulse Ox 98 04/11/21 11:49 Testing Laboratory Results 04/11/21 07:41 04/11/21 07:41 PT 9.6 Seconds (9.0-12.0) 04/10/21 06:28 INR 0.9 (0.9-1.1) 04/10/21 06:28 APTT 24.5 Seconds (21.0-31.0) 04/10/21 06:28 Blood Type O Positive 04/10/21 06:38 Antibody Screen NEGATIVE 04/10/21 06:38
[2021-04-11] MEDS ORDERED: PROPOFOL IV EMULSION 10 MG/ML 20 ML VIAL IV ONE ×2 (13:06→13:48)
[2021-04-11] MEDS ORDERED: LIDOCAINE 2% 2 ML VIAL/AMP(20MG/ML) INFIL ONE (13:06)
--- NOTE | 2021-04-11 13:53 | Post Operative Brief Note ---
Immediate Post Op Note v1 Date of Surgery April 11, 2021 Pre & Post Diagnosis Operation Date: 04/10/21 16:45 Pre-Op Diagnosis: GI BLEED Post-Op Diagnosis: ge juction erosions, ring, esophagitis, gastritis, duodenitis with erosions, duodenal stricture Operation Date: 04/11/21 17:15 Pre-Op Diagnosis: GI BLEED I identified the patient and participated in the time-out.: Yes Procedure Operation Date: 04/10/21 16:45 Actual Procedures p Esophagogastroduodenoscopy - Armond Dailey Operation Date: 04/11/21 17:15 <No data on this case meets the specified criteria> Surgeon Armond Dailey Billing Rep see formal report Estimated Blood Loss 0 Findings Consistent with Post-Op Diagnosis Rectal polyp with stigmata of recent bleeding hot snared. Bleeding has resolved. No clear etiology. Pt can be DCed today and recommend GI followup in one month to consider capsule endoscopy. Avoid NSAIDs excpet tylenol and continue oral PPI as outp to treat PUD. Will sign off.
--- NOTE | 2021-04-11 13:58 | GI REPORT ---
Patient Name: Al Kim Procedure Date: 04/11/2021 1:11 PM Date of : 1970 Admit Type: Inpatient Age: 51 Gender: Male Attending MD: Armond Dailey MD Procedure: Colonoscopy Providers: Armond Dailey MD Referring MD: Yassine Mendoza Indications: Melena Medicines: Monitored Anesthesia Care Complications: No immediate complications. Estimated blood loss: None. Estimated Blood Loss: Estimated blood loss: none. Procedure: Pre-Anesthesia Assessment: - The risks and benefits of the procedure and the sedation options and risks were discussed with the patient. All questions were answered and informed consent was obtained. After I obtained informed consent, the scope was passed under direct vision. Throughout the procedure, the patient's blood pressure, pulse, and oxygen saturations were monitored continuously. The Colonoscope was introduced through the anus and advanced to the terminal ileum, with identification of the appendiceal orifice and IC valve. The colonoscopy was performed without difficulty. The patient tolerated the procedure well. Procedure and risks explained to patient which include but not limited to med reaction, bleeding, perforation, aspiration and missed lesions. Judicious gas insufflation and gas removal done on the way out. The lumen always well visualized when advancing the scope. Washes and suctioning used as needed for good visuzlization of mucosa. Prep was good. Retroflexion in the rectum to look at the distal rectum and anal canal done. Findings: The terminal ileum appeared normal. A 8 mm polyp was found in the rectum. The polyp was sessile. The polyp was removed with a lift and cut technique using a hot snare. Resection and retrieval were complete. Estimated blood loss: none. Stigmata of bleeding noted on rectal polyp but otherwise no fresh nor old blood noted throughout exam. The exam was otherwise without abnormality on direct and retroflexion views. Impression: - The examined portion of the ileum was normal. - One 8 mm polyp in the rectum, removed using lift and cut and a hot snare. Resected and retrieved. - Stigmata of bleeding noted on rectal polyp but otherwise no fresh nor old blood noted throughout exam. - The examination was otherwise normal on direct and retroflexion views. Recommendation: - [facility] same day. - Recommend capsule endoscopy as outpt. Armond D. Dailey, M.Laisha Dailey MD 04/11/2021 1:58:21 PM This report has been signed electronically. Note Initiated On: 04/11/2021 1:11 PM Number of Addenda: 0 I attest to the content of the Intraoperative Record and orders documented therein, exceptions below {[id number]}
--- NOTE | 2021-04-11 14:03 | Anesthesiology Progress Note ---
Date of Service April 11, 2021 Anesthesia Post Procedure Vital Signs Vital Signs: Temp Pulse Pulse Resp BP Pulse Ox 04/11/21 13:51 74 16 91/58 L 98 04/11/21 12:56 36.7 C 72 16 136/84 100 04/11/21 11:49 36.7 C 67 18 115/72 98 04/11/21 07:40 61 04/11/21 07:00 36.8 C 61 18 106/65 98 04/11/21 04:58 36.7 C 66 15 105/58 L 100 04/10/21 23:20 36.5 C 68 18 114/78 99 04/10/21 22:18 59 L 04/10/21 19:54 66 04/10/21 19:10 36.4 C L 68 18 134/89 100 04/10/21 15:25 63 14 100/73 100 04/10/21 15:10 73 15 104/64 100 04/10/21 14:55 86 16 118/77 98 04/10/21 14:19 36.6 C 65 18 133/78 98 Pain Intensity Bilateral Lower Abdomen: Pain Intensity: 2 Transfer of Care Handoff Completed per policy Notes Mental Status: alert / awake / arousable Patient Amnestic to Procedure: Yes Nausea / Vomiting: adequately controlled Pain: adequately controlled Airway Patency, RR, SpO2: stable & adequate BP & HR: stable & adequate Hydration State: stable & adequate Anesthetic Complications: no major complications apparent and Pt Satisfied with anesthetic care
--- NOTE | 2021-04-11 14:38 | Discharge Summary ---
Date of Service April 11, 2021 Admission HPI Per Admitting Provider 51 yo male with no significant medical history presents with development of dark, melanotic stools in the past 10 hours. Never had this before, started around 1am, woke up with diaphoresis, had diarrhea about 4 times then had several very dark, black looking stools. No bright red blood. He had some nausea but no vomiting. Some vague upper abdominal discomfort. He came to the ED for evaluation, two more dark melanotic stools in the ED. He says that 3 days ago his dog bit his right hand. Bit down on thumb and thenar eminence. Has had a lot of pain and swelling. Has been taking Naproxen BID and Tylenol b ut also ibuprofen 400mg several times a day. Discussed that this is too much NSAID use, could be cause of gastric ulcer. No heavy alcohol use. He was scheduled to have colonoscopy with Dr Dailey next week. Will consult Dr. Dailey. Principal Diagnosis Acute GI bleed Discharge Exam General: well developed, well nourished, no acute distress, comfortable Neck: supple, trachea midline, normal thyroid Lungs: clear to auscultation bilaterally, normal respiratory effort, no accessory muscle use, no distress Heart: regular S1 and S2, no murmur, peripheral pulses normal, capillary refill normal, no edema Abdomen: soft, NT, ND, + BS, no hepatomegaly, normal to percussion Extremities: normal in appearance, no cyanosis, no petechiae, strength is 5/5 bilaterally Neuro: awake, cooperative, moves all extremities, no focal motor deficits, CN II-XII intact, sensation in extremities intact, normal speech Skin: warm, dry, no rash, normal turgor Psych: Awake, alert oriented x 3, euthymic affect Discharge Data Allergies Allergy/AdvReac Type Severity Reaction Status Date / Time bee venom protein (honey bee) Allergy Severe ANAPHYLAXIS Unverified 04/10/21 07:41 Consultations 04/10/21 07:29 ED Decision to Admit Stat 04/10/21 10:40 Consult Gastroenterology Routine Procedures Performed Operation Date: 04/10/21 16:45 Actual Procedures p Esophagogastroduodenoscopy - Armond Dailey Operation Date: 04/11/21 17:15 Actual Procedures p Colonoscopy Polypectomy - Armond Dailey Hospital Course (1) GI bleed: melanotic stools since 1am the morning of admission, initially was diarrhea, then 4 dark, black stools taking Naproxen BID and ibuprofen several times a day for 2-3 days NPO, Protonix 40mg IV BID consult [facility] GI EGD same day as admission: mild esophagitis, numerous gastric fundus erosions with one oozing small amount of blood, duodenal erosions, no ulcers Colonoscopy next day: small rectal polyp, no other areas of concern, especially for bleeding discharge to home on Protonix BID x 2 weeks then daily for a few months avoid NSAIDs for several weeks, educated patient on importance of not taking more than one NSAID, take with food if he needs to take NSAID would get over the counter Prilosec to take at the same time avoid alcohol for several weeks if he would have bleeding again, GI recommended capsule endoscopy outpatient (2) Anemia: anemia due to acute blood loss from GI bleed slight drop in H/H but stable, BP stable BUN trending down suggesting that active bleeding has stopped (3) Dog bite of hand: some redness and swelling of right thumb, thenar eminence treated with Unasyn IV while inpatient bite occurred 2 days prior to admission, no fever/chills he is up to date on tetanus shot finish three more days of Augmentin for prophylaxis Total Time Total Time Spent Total Time Spent (In Minutes): 32 Discharge Plan Discharge Items Patient Disposition: Home - Self-Care Reason For Visit: GI BLEED Discharge Diagnosis: GI bleed Gastric ulcers Rectal polyp Condition on Discharge: Good Goals: no NSAIDS report any further bleeding Activity: Resume your previous activity Driving/Machine Use: No limitations Weightbearing: Full weightbearing Non-emergency contact: Primary Care Provider Call non-emergency contact if: you have any medication questions and your symptoms worsen Follow-up/Referrals: China Banda MD [Primary Care Provider] - (one week) Diet: Regular Addtl Attending Provider Instructions: Medications: - AUGMENTIN: antibiotic for dog bite, take for 7 more doses, this is twice a day, start tonight - PROTONIX: proton pump inhibitor, treats the gastritis and small gastric ulcers, take twice a day for two weeks then once a day for 2-3 months, can then stop AVOID NSAIDS: no Aleve (naproxen), Motrin (ibuprofen), Mobic as this is what caused gastritis and ulcers you can take them in the future but when you do you need to take with food, never take more than one kind, and if you are going to take them for a few days for pain you should take over the counter omeprazole at the same time No alcohol for the next 2 weeks to allow stomach to heal EGD: gastritis, small ulcers with one ulcer oozing Colonoscopy: rectal polyp, removed, follow up with Dr. Dailey's office for pathology report, they will likely contact you if you have bleeding again in future could consider repeat EGD or capsule endoscopy, follow up with Dr. Dailey Pending Studies at Discharge: Yes Studies:: H pylori antigen testing Stand-Alone Forms: My [facility] Medications and DC Order Prescriptions: New amoxicillin-pot clavulanate [Augmentin] 875-125 mg tablet 1 tab PO BID Qty: 7 RF: 0 pantoprazole [Protonix] 40 mg tablet,delayed release (DR/EC) 40 mg PO BID 30 Days Qty: 60 RF: 1 Discharge Orders: Discharge Order (Routine); Ordered 04/11/21 Ordered By: Yassine Mendoza Admission Data Admit Date/Time: 04/10/21 07:28 Attending Provider: Yassine Mendoza Admit Provider: Yassine Mendoza Primary Care Provider: China Banda Other Providers: Yassine Mendoza ; Armond Dailey Other Interventions: Discharge Summary Assessment (RN) Last Done: 04/11/21 14:47 Coding Level of Care Code 37361 OBS Care - Discharge Diagnoses GI bleed K92.2 Dog bite of hand S61.459A; W54.0XXA Anemia D64.9
== END 2021-04-11 15:56 | disposition home or self-care (01) ==
LOC: EDINP 05:22 → ED 05:22 → 2N 10:08